=== PATIENT | female | born 2000 | race Caucasian/White ===

== ENCOUNTER 2022-01-20 14:55 | Emergency (ER) | payer OTHER, SELFPAY ==
[2022-01-20] MEDS ORDERED: Acetaminophen 500 MG TAB ONE (15:45)
[2022-01-20 16:48] LABS: Bilirubin Neg (Negative); Blood, Urine Negative (Negative); Glucose, Urine (Dipstick) Normal (Negative); Ketone, Urine Negative (Negative); Leukocyte Negative (Negative); Nitrite Negative (Negative); Protein, Urine (Dipstick) Negative (Neg-Trace); Specific Gravity, Urine 1.005 (1.002-1.036); Urobilinogen Normal mg/dL (Less than 2)
[2022-01-20 16:50] LABS: Clarity Clear (Clear)
[2022-01-20 16:51] LABS: Pregu Control Background? CLEAR/WHITE (CLR/WHITE); Pregu Control Bar Appear? YES (CONTROL BAR); Specific Gravity 1.005 (1.002-1.036)
[2022-01-20 16:52] LABS: Pregnancy Test - Urine (BHCG) Negative (Negative)
[2022-01-20] MEDS ORDERED: Dexamethasone 10 MG/ML VIAL ONE (17:22)
[2022-01-20] MEDS ORDERED: Diazepam 5 MG TAB ONE (17:23)
[2022-01-20] MEDS ORDERED: Ketorolac Tromethamine 30 MG/ML VIAL ONE (17:23)
== END 2022-01-20 17:35 | disposition home or self-care (01) ==
LOC: CSHERS 14:55
DX: S39.012A Strain of muscle, fascia and tendon of lower back, initial encounter (principal); I10 Essential (primary) hypertension; X50.9XXA Other and unspecified overexertion or strenuous movements or postures, initial encounter
CPT/HCPCS: 81003; 81025; 96374; 96375; J1100; J1885